=== PATIENT | female | born 1985 | race Caucasian/White ===

== ENCOUNTER 2017-04-04 16:59 | Emergency (ER) | payer MEDICAID ==
--- NOTE | 2017-04-04 17:58 | EDM.PDOC ---
ED HPI GENERAL MEDICAL PROBLEM - General Chief Complaint: ENT Problem Stated Complaint: PAIN RT SIDE JAW/FACE Time Seen by Provider: 04/04/17 17:40 Source of Information: Reports: Patient History Limitations: Reports: No Limitations - History of Present Illness INITIAL COMMENTS - FREE TEXT/NARRATIVE: History of present illness: [32-year-old female comes in complaining of right-sided jaw pain. Indicates that it is in the upper jaw radiating up into her anabaptism and then going down into her jaw and down into her neck.] Review of systems: As per history of present illness and below otherwise all systems reviewed and negative. Past medical history: As per history of present illness and as reviewed below otherwise noncontributory. Surgical history: As per history of present illness and as reviewed below otherwise noncontributory. Social history: No reported history of drug or alcohol abuse. Family history: As per history of present illness and as reviewed below otherwise noncontributory. Physical exam: HEENT: Atraumatic, normocephalic, pupils reactive, negative for conjunctival pallor or scleral icterus, mucous membranes moist, throat clear, neck supple, nontender, trachea midline. Lungs: Clear to auscultation, breath sounds equal bilaterally, chest nontender. Heart: S1S2, regular, negative for clicks, rubs, or JVD. Abdomen: Soft, nondistended, nontender. Negative for masses or hepatosplenomegaly. Negative for costovertebral tenderness. Pelvis: Stable nontender. Genitourinary: Deferred. Rectal: Deferred. Extremities: Atraumatic, negative for cords or calf pain. Neurovascular unremarkable. Neuro: Awake, alert, oriented. Cranial nerves II through XII unremarkable. Cerebellum unremarkable. Motor and sensory unremarkable throughout. Exam nonfocal. Dental: Patient with a filling of a few months in the right upper jaw in the region of 2 or 3 with a filling but swelling at the gumline consistent with an abscess patient noted increased tenderness on palpation to that zone. Diagnostics: [] Therapeutics: [] Impression: [#1 dental abscess] Plan: [Antibiotics pain medication follow-up with dentist] Definitive disposition and diagnosis as appropriate pending reevaluation and review of above. Right Jaw Pain Score (Numeric/FACES): 2 - Related Data Allergies Allergy/AdvReac Type Severity Reaction Status Date / Time latex Allergy Hives Verified 04/04/17 17:21 nifedipine Allergy Hives Verified 04/04/17 17:21 Sulfa (Sulfonamide Allergy Hives Verified 04/04/17 17:21 Antibiotics) triamcinolone Allergy Hives Verified 04/04/17 17:21 Home Meds: Home Meds . [No Known Home Meds] 06/04/16 [History] Past Medical History - Past Health History Medical/Surgical History: Denies Medical/Surgical History Hematologic History: Reports: None Immunologic History: Reports: None - Infectious Disease History Infectious Disease History: Reports: Chicken Pox - Past Surgical History Female Surgical History: Reports: LEEP Social & Family History - Family History Family Medical History: Noncontributory - Tobacco Use Smoking Status *Q: Never Smoker Second Hand Smoke Exposure: No - Caffeine Use Caffeine Use: Reports: None - Alcohol Use Days Per Week of Alcohol Use: 0 - Recreational Drug Use Recreational Drug Use: No Drug Use in Last 12 Months: No ED ROS ENT - Review of Systems Review Of Systems: See Below (The history of present illness) ED EXAM, ENT - Physical Exam Exam: See Below (See history of present illness) Course - Vital Signs Last Recorded V/S: Last Vital Signs Temp 37.1 C 04/04/17 17:22 Pulse 96 04/04/17 17:22 Resp 16 04/04/17 17:22 BP 128/76 04/04/17 17:22 Pulse Ox 99 04/04/17 17:22 Departure - Departure Time of Disposition: 17:56 Disposition: Home, Self-Care 01 Condition: Good Clinical Impression: Dental abscess - Discharge Information Referrals: Charlie Villafana MD [Primary Care Provider] - Additional Instructions: The following information is given to patients seen in the emergency department who are being discharged to home. This information is to outline your options for follow-up care. We provide all patients seen in our emergency department with a follow-up referral. The need for follow-up, as well as the timing and circumstances, are variable depending upon the specifics of your emergency department visit. If you don't have a primary care physician on staff, we will provide you with a referral. We always advise you to contact your personal physician following an emergency department visit to inform them of the circumstance of the visit and for follow-up with them and/or the need for any referrals to a consulting specialist. The emergency department will also refer you to a specialist when appropriate. This referral assures that you have the opportunity for follow-up care with a specialist. All of these measure are taken in an effort to provide you with optimal care, which includes your follow-up. Under all circumstances we always encourage you to contact your private physician who remains a resource for coordinating your care. When calling for follow-up care, please make the office aware that this follow-up is from your recent emergency room visit. If for any reason you are refused follow-up, please contact the Emergency Department at and asked to speak to the emergency department charge nurse. As discussed some fillings can crack, leak, or pull away from the tooth allowing bacteria to get behind them so this problem was not immediately visible until you start throwing an infection which is consistent with her findings today In light of lack of trauma and the swelling at the gumline this is consistent with a dental abscess and you're being treated accordingly Please take antibiotics and pain medicine as directed Follow-up with your dentist as soon as you can it is okay to complete antibiotics before the appointment Return to ED as needed as discussed
[2017-04-04 18:33] VITALS: BP 116/70
== END 2017-04-04 18:29 | disposition home or self-care (01) ==
LOC: MW.ED 16:59
DX: K04.7 Periapical abscess without sinus (principal); Z91.040 Latex allergy status; Z88.2 Allergy status to sulfonamides; Z88.8 Allergy status to other drugs, medicaments and biological substances
CPT/HCPCS: 99282

== ENCOUNTER 2018-01-16 20:54 | Emergency (ER) | payer SELFPAY ==
[2018-01-16] MEDS ORDERED: Ondansetron 4 MG/2 ML SDV IVPUSH ONE (21:55)
[2018-01-16] MEDS ORDERED: Ketorolac 30 MG/ML SDV IVPUSH ONE (21:55)
[2018-01-16] MEDS ORDERED: Morphine 2 MG/ML Syringe IVPUSH ONE (21:55)
[2018-01-16] MEDS ORDERED: Sodium Chloride 0.9% 2.5 ML Syringe FLUSH PRN (21:55)
[2018-01-16] MEDS ORDERED: Sodium Chloride 0.9% 10 ML Syringe FLUSH PRN (21:55)
[2018-01-16] MEDS ORDERED: Sodium Chloride 0.9% 1,000 ML IV ONE (21:55)
--- NOTE | 2018-01-16 21:58 | EDM.PDOC ---
ED HPI GENERAL MEDICAL PROBLEM - General Chief Complaint: Abdominal Pain Stated Complaint: RT SIDE ABDOMINAL PAIN Time Seen by Provider: 01/16/18 21:50 - History of Present Illness INITIAL COMMENTS - FREE TEXT/NARRATIVE: HISTORY AND PHYSICAL: History of present illness: The patient is a 32-year-old female with no GI or history and no abdominal surgical history who presents with onset of right upper and right lower quadrant pain that started about 12 noon today, 10 hours ago. The patient says she has had nausea with this but no vomiting and no diarrhea and she had a normal bowel movement yesterday. The patient did not state that she had any history of food intolerance and she has had no fevers chills upper respiratory symptoms flank pain or urinary complaints. She denies and says that she has not due for her period because it comes every 5-6 weeks. Her had a vasectomy. She describes the pain as dull deep and aching and it does not radiate. She says it's more in the right lower quadrant currently. Ibuprofen earlier but nothing since that time for pain. The patient says that since breakfast she has not eaten any solids and she's only taken a small amount of oral fluids due to the nausea and pain. Review of systems: As per history of present illness and below otherwise all systems reviewed and negative. Past medical history: As per history of present illness and as reviewed below otherwise noncontributory. Surgical history: As per history of present illness and as reviewed below otherwise noncontributory. Social history: No reported history of drug or alcohol abuse. Family history: As per history of present illness and as reviewed below otherwise noncontributory. Physical exam: General: Well-developed well-nourished female who moves easily in the ED without distress. Vital signs were noted by me HEENT: Atraumatic, normocephalic, negative for conjunctival pallor or scleral icterus, mucous membranes tacky, throat clear, neck supple, nontender, trachea midline. Lungs: Clear to auscultation, breath sounds equal bilaterally, chest nontender. Heart: S1S2, regular, negative for clicks, rubs, or JVD. Abdomen: Soft, nondistended, mildly tender in the right upper quadrant and right lower quadrant without rebound or guarding and bowel sounds are hypoactive. Negative for masses or hepatosplenomegaly. Negative for costovertebral tenderness. Pelvis: Stable nontender. Genitourinary: Deferred. Rectal: Deferred. Extremities: Atraumatic, negative for cords or calf pain. Neurovascular unremarkable. Neuro: Awake, alert, oriented. Cranial nerves II through XII unremarkable. Cerebellum unremarkable. Motor and sensory unremarkable throughout. Exam nonfocal. Diagnostics: CBC CMP amylase lipase UA CT scan of the abdomen and pelvis Therapeutics: IV fluids Zofran Toradol morphine He is aware of all testing results and need for follow-up as well as avoidance of fatty foods and I will give her Zofran and tramadol for home. Impression: Right abdominal pain etiology unclear Definitive disposition and diagnosis as appropriate pending reevaluation and review of above. abdomen Pain Score (Numeric/FACES): 7 - Related Data Allergies Allergy/AdvReac Type Severity Reaction Status Date / Time latex Allergy Hives Verified 01/16/18 21:20 nifedipine Allergy Hives Verified 01/16/18 21:20 Sulfa (Sulfonamide Allergy Hives Verified 01/16/18 21:20 Antibiotics) triamcinolone Allergy Hives Verified 01/16/18 21:20 plaster Allergy Hives Uncoded 01/16/18 21:21 Home Meds: Home Meds . [No Known Home Meds] 06/04/16 [History] Past Medical History - Past Health History Medical/Surgical History: Denies Medical/Surgical History Hematologic History: Reports: None Immunologic History: Reports: None - Infectious Disease History Infectious Disease History: Reports: Chicken Pox - Past Surgical History Female Surgical History: Reports: LEEP Social & Family History - Family History Family Medical History: Noncontributory - Tobacco Use Smoking Status *Q: Never Smoker - Caffeine Use Caffeine Use: Reports: None - Recreational Drug Use Recreational Drug Use: No ED ROS GENERAL - Review of Systems Review Of Systems: ROS reveals no pertinent complaints other than HPI. ED EXAM, GENERAL - Physical Exam Exam: See Below (See dictation) Course - Vital Signs Last Recorded V/S: Last Vital Signs Temp 37.2 C 01/16/18 20:54 Pulse 88 01/16/18 23:11 Resp 16 01/16/18 23:11 BP 126/70 01/16/18 23:11 Pulse Ox 96 01/16/18 23:11 - Orders/Labs/Meds Orders: Active Orders 24 hr Category Date Time Status Abdomen Pelvis w Cont [CT] Stat Exams 01/16/18 21:55 Taken UA W/MICROSCOPIC [URIN] Stat Lab 01/16/18 21:50 Ordered Sodium Chloride 0.9% [Saline Flush] Med 01/16/18 21:55 Active 10 ml FLUSH ASDIRECTED PRN Sodium Chloride 0.9% [Saline Flush] Med 01/16/18 21:55 Active 2.5 ml FLUSH ASDIRECTED PRN Saline Lock Insert [OM.PC] Stat Oth 01/16/18 21:55 Ordered Medication Orders Sodium Chloride (Saline Flush) 10 ml FLUSH ASDIRECTED PRN PRN Reason: Keep Vein Open Sodium Chloride (Saline Flush) 2.5 ml FLUSH ASDIRECTED PRN PRN Reason: Keep Vein Open Labs: Laboratory Tests 01/16/18 01/16/18 01/16/18 Range/Units 21:50 21:50 21:50 WBC 10.30 (4.0-11.0) K/uL RBC 4.69 (4.30-5.90) M/uL Hgb 15.0 (12.0-16.0) g/dL Hct 43.4 (36.0-46.0) % MCV 92.5 (80.0-98.0) fL MCH 32.0 (27.0-32.0) pg MCHC 34.6 (31.0-37.0) g/dL RDW Std Deviation 41.8 (28.0-62.0) fl RDW Coeff of Edvin 12 (11.0-15.0) % Plt Count 273 (150-400) K/uL MPV 9.80 (7.40-12.00) fL Neut % (Auto) 58.1 (48.0-80.0) % Lymph % (Auto) 28.9 (16.0-40.0) % [place] % (Auto) 9.6 (0.0-15.0) % Eos % (Auto) 2.9 (0.0-7.0) % Baso % (Auto) 0.5 (0.0-1.5) % Neut # (Auto) 6.0 H (1.4-5.7) K/uL Lymph # (Auto) 3.0 H (0.6-2.4) K/uL [place] # (Auto) 1.0 H (0.0-0.8) K/uL Eos # (Auto) 0.3 (0.0-0.7) K/uL Baso # (Auto) 0.1 (0.0-0.1) K/uL Nucleated RBC % 0.0 /100WBC Nucleated RBCs # 0 K/uL Sodium 141 (136-145) mmol/L Potassium 3.6 (3.5-5.1) mmol/L Chloride 104 (98-107) mmol/L Carbon Dioxide 29.3 (21.0-32.0) mmol/L BUN 13 (7.0-18.0) mg/dL Creatinine 1.0 (0.6-1.0) mg/dL Est Cr Clr Drug Dosing 78.54 mL/min Estimated GFR (MDRD) > 60.0 ml/min Glucose 105 (74-106) mg/dL Calcium 9.4 (8.5-10.1) mg/dL Total Bilirubin 0.4 (0.2-1.0) mg/dL AST 19 (15-37) IU/L ALT 25 (14-63) IU/L Alkaline Phosphatase 51 (46-116) U/L Total Protein 8.1 (6.4-8.2) g/dL Albumin 4.0 (3.4-5.0) g/dL Globulin 4.1 H (2.0-3.5) g/dL Albumin/Globulin Ratio 1.0 L (1.3-2.8) Amylase 62 (25-115) U/L Lipase 116 (73-393) U/L Urine Color YELLOW Urine Appearance CLEAR Urine pH 6.0 (5.0-8.0) Ur Specific [place] 1.020 (1.001-1.035) Urine Protein NEGATIVE (NEGATIVE) mg/dL Urine Glucose (UA) NEGATIVE (NEGATIVE) mg/dL Urine Ketones NEGATIVE (NEGATIVE) mg/dL Urine Occult Blood SMALL H (NEGATIVE) Urine Nitrite NEGATIVE (NEGATIVE) Urine Bilirubin NEGATIVE (NEGATIVE) Urine Urobilinogen 0.2 (<2.0) EU/dL Ur Leukocyte Esterase NEGATIVE (NEGATIVE) Urine RBC 0-2 (0-2/HPF) Urine WBC 0-1 (0-5/HPF) Ur Epithelial Cells FEW (NONE-FEW) Urine Bacteria FEW (NEGATIVE) Meds: Medications Generic Name Dose Route Start Last Admin Trade Name Wanda PRN Reason Stop Dose Admin Sodium Chloride 10 ml 01/16/18 21:55 Saline Flush FLUSH ASDIRECTED PRN Keep Vein Open Sodium Chloride 2.5 ml 01/16/18 21:55 Saline Flush FLUSH ASDIRECTED PRN Keep Vein Open Discontinued Medications Generic Name Dose Route Start Last Admin Trade Name Wanda PRN Reason Stop Dose Admin Sodium Chloride 1,000 mls @ 999 mls/hr 01/16/18 21:55 01/16/18 22:10 Normal Saline IV 01/16/18 22:55 999 mls/hr STAT ONE Administration Iopamidol 100 ml 01/16/18 23:15 01/16/18 23:15 Isovue Multipack-370 (76%) IVPUSH 01/16/18 23:16 100 ml ONETIME STA Administration Ketorolac Tromethamine 30 mg 01/16/18 21:55 01/16/18 22:10 Toradol IVPUSH 01/16/18 21:56 30 mg ONETIME ONE Administration Morphine Sulfate 2 mg 01/16/18 21:55 01/16/18 22:10 Morphine IVPUSH 01/16/18 21:56 2 mg ONETIME ONE Administration Ondansetron HCl 4 mg 01/16/18 21:55 01/16/18 22:10 Zofran IVPUSH 01/16/18 21:56 4 mg ONETIME ONE Administration Departure - Departure Time of Disposition: 23:54 Disposition: Home, Self-Care 01 Condition: Good Clinical Impression: Abdominal pain Qualifiers: Abdominal location: right lower quadrant Qualified Code(s): R10.31 - Right lower quadrant pain - Discharge Information Referrals: Charlie Villafana MD [Primary Care Provider] - Forms: ED Department Discharge Additional Instructions: The following information is given to patients seen in the emergency department who are being discharged to home. This information is to outline your options for follow-up care. We provide all patients seen in our emergency department with a follow-up referral. The need for follow-up, as well as the timing and circumstances, are variable depending upon the specifics of your emergency department visit. If you don't have a primary care physician on staff, we will provide you with a referral. We always advise you to contact your personal physician following an emergency department visit to inform them of the circumstance of the visit and for follow-up with them and/or the need for any referrals to a consulting specialist. The emergency department will also refer you to a specialist when appropriate. This referral assures that you have the opportunity for followup care with a specialist. All of these measure are taken in an effort to provide you with optimal care, which includes your followup. Under all circumstances we always encourage you to contact your private physician who remains a resource for coordinating your care. When calling for followup care, please make the office aware that this follow-up is from your recent emergency room visit. If for any reason you are refused follow-up, please contact the [facility] emergency department at and ask to speak to the emergency department charge nurse. [facility] Primary care- Internal Medicine and Family [address] [id number] Push hydration and try to avoid foods with fat or oil. Use medications as prescribed to be Insty Meds, Zofran and tramadol, as needed and please call and schedule a follow-up appointment. Return to ER as needed and as discussed - My Orders Last 24 Hours: My Active Orders 01/16/18 21:50 UA W/MICROSCOPIC [URIN] Stat 01/16/18 21:55 Abdomen Pelvis w Cont [CT] Stat Sodium Chloride 0.9% [Saline Flush] 10 ml FLUSH ASDIRECTED PRN Sodium Chloride 0.9% [Saline Flush] 2.5 ml FLUSH ASDIRECTED PRN Saline Lock Insert [OM.PC] Stat - Assessment/Plan Last 24 Hours: My Active Orders 01/16/18 21:50 UA W/MICROSCOPIC [URIN] Stat 01/16/18 21:55 Abdomen Pelvis w Cont [CT] Stat Sodium Chloride 0.9% [Saline Flush] 10 ml FLUSH ASDIRECTED PRN Sodium Chloride 0.9% [Saline Flush] 2.5 ml FLUSH ASDIRECTED PRN Saline Lock Insert [OM.PC] Stat
[2018-01-16 22:18] LABS: CHLORIDE,CL 104 mmol/L (98-107); SODIUM,NA 141 mmol/L (136-145)
[2018-01-16 23:11] VITALS: BP 126/70
[2018-01-16] MEDS ORDERED: Iopamidol 755 MG/ML 500 ML Multipack Bottle IVPUSH STA (23:15)
--- NOTE | 2018-01-17 17:04 | CT ---
EXAM DATE: 01/16/18 PATIENT'S AGE: 32 Patient: WENDY WORKMAN Facility: [place], [place] Site . Site : 1985 Study: CT Abdomen/Pelvis [id number]/24/2018 11:17:11 PM Ordering Physician: Gerard Gamboa Final Report: INDICATION: Right sided abdominal pain TECHNIQUE: CT Abdomen and pelvis with i.v. contrast. Coronal and sagittal reformats were obtained. CONTRAST: 100 mL Isovue 370 COMPARISON: 06/04/2016 FINDINGS: Lower chest: Unremarkable. Liver: Unremarkable. Spleen: Unremarkable. Pancreas: Unremarkable. Gallbladder: Unremarkable. Kidney: Unremarkable. No kidney or ureteral stones or obstruction seen. Adrenal: Unremarkable. Bowel: Unremarkable. The appendix is normal in appearance and size. Vascular: Unremarkable. Lymph: Unremarkable. Peritoneum: Unremarkable. No pneumoperitoneum is seen. Small amount of ascites is present and is likely physiologic in origin. Pelvis: Moderate bladder distention is noted. Soft tissue: Unremarkable. Bone: Bilateral chronic pars defects of L5 noted with mild anterolisthesis of L5 -S1 noted without interval change. IMPRESSION: 1. Unremarkable with no CT correlate for the patient`s symptoms seen. Dictated by Augie Kauffman MD @ 01/16/2018 11:33:30 PM Please note that all CT scans at this facility use dose modulation, iterative reconstruction, and/or weight-based dosing when appropriate to reduce radiation dose to as low as reasonably achievable. Dictated by: Augie Kauffman MD @ 01/16/2018 23:34:34 (Electronic Signature) Report Signed by Proxy. [facility]
== END 2018-01-17 00:15 | disposition home or self-care (01) ==
LOC: MW.ED 20:54
DX: R10.31 Right lower quadrant pain (principal); Z91.040 Latex allergy status; Z88.2 Allergy status to sulfonamides; Z91.09 Other allergy status, other than to drugs and biological substances
CPT/HCPCS: 74177; 80053; 81001; 82150; 83690; 85025; 96361; 96374; 96375; 99284; J1885; J2270; J2405; J7040; Q9967

== ENCOUNTER 2021-06-23 10:30 | Observation (INO) | payer SELFPAY ==
--- NOTE | 2021-06-23 10:51 | EDM.PDOC ---
ED HPI GENERAL MEDICAL PROBLEM - General Chief Complaint: Syncope Stated Complaint: PASSING OUT Time Seen by Provider: 06/23/21 10:44 Source of Information: Reports: Patient History Limitations: Reports: No Limitations - History of Present Illness INITIAL COMMENTS - FREE TEXT/NARRATIVE: HISTORY AND PHYSICAL: History of present illness: The patient is a 36 year old female who presents from the clinic with complaints of syncopal episodes and a K+ 2.9. The patient states she has been having syncopal episodes for three days. She associated it with her menses cycle as this does happen and she is currently having a heavy cycle. The patient states up until three days ago she has otherwise been healthy. Patient denies any fever, chills, headache, change in vision. Denies any chest pain, back pain, shortness of breath or cough. Denies any abdominal pain, vomiting, diarrhea, constipation or dysuria. Has not noted any blood in urine or stool. Patient has been eating and drinking appropriately. Review of systems: As per history of present illness and below otherwise all systems reviewed and negative. Past medical history: As per history of present illness and as reviewed below otherwise noncontributory. Surgical history: As per history of present illness and as reviewed below otherwise noncontributory. Social history: See social history for further information Family history: As per history of present illness and as reviewed below otherwise noncontributory. Physical exam: General: Well developed and well nourished. Alert and orientated x 3. Nontoxic in appearance and in no acute distress. Vital signs are stable and have been reviewed by me. Nursing notes were reviewed. HEENT: Atraumatic, normocephalic, pupils equal and reactive bilaterally, negative for conjunctival pallor or scleral icterus, mucous membranes moist, TMs normal bilaterally, throat clear, neck supple, nontender, trachea midline. No drooling or trismus noted. No meningeal signs. No hot potato voice noted. Lungs: Clear to auscultation bilaterally. No wheezes, rales, or rhonchi. Chest nontender. Normal work of breathing, no accessory muscles used. Heart: S1S2, regular rate and rhythm without overt murmur, gallops, or rubs. No JVD. No peripheral edema Abdomen: Soft, nondistended, nontender. Normoactive bowel sounds. Negative for masses or costovertebral tenderness. Skin: Intact, warm, dry. Red areas noted on face and nose. Hematologic: No petechiae or purpra. Mucosa appropriate color and normal nail bed color and refill. Extremities: Atraumatic, moves all extremities per self without difficulty or deficits. Neurovascular unremarkable. Neuro: Awake, alert, oriented. Cranial nerves II through XII unremarkable. Cerebellum unremarkable. Motor and sensory unremarkable throughout. Exam nonfocal. Psychiatric: Mood and affect are appropriate. Normal thought process. Answering questions appropriately. Notes: *This patient was seen and evaluated during the 2019 SARS-CoV-2 novel coronavirus pandemic period. Community viral transmission is ongoing at time of this encounter and the emergency department is operating under pandemic response procedures. As stated above, the patient is a 36 year old female that has had several syncopal episodes over the last three days. The patient has been nauseated but has not been vomiting or having diarrhea. Her exam is benign. I will repeat her labs and EKG. I will order fluids and zofran. I have order a head CT. The patient refused her head CT. The patient's K+ is 3.2. Due to her nausea, I have ordered a K-rider of 20MeQ. The patient is agreeable with this plan. At 12:50 the patient had a syncopal episode or possible seizure activity according to the friend in the room. The patient does not appear postitical but does complain of left arm and hand pain after the episode. The patient has agreed to the head CT. I have added a urine drug screen, acetaminophen and salicylate level, along with a COVID swab. I have consulted Dr. Manjarrez on the case. Head CT: IMPRESSION: Unremarkable noncontrast head CT. The patient's COVID-19 was positive. I spoke with Dr. Lynn regarding admission status. Dr. Lynn will accept the patient as an observation with telemetry. The patient will get orthostatic vitals. I will order an chest x-ray due to the patient being COVID-19+. The patient is aware of the diagnosis and of the a dmission. She is agreeable with the plan. The patient is orthostatic with a sitting blood pressure of 107/66 & pulse 104, standing b/p 102/65 & pulse 121. She is not dizzy after having to stand up. Chest x-ray Findings/Impression: Cardiovascular and mediastinum: Heart size and vasculature are normal in caliber and appearance. Lungs and pleural space: Relatively small focal infiltrate in the left lower lobe consistent with pneumonia/pneumonitis. Remainder of the lungs and pleural spaces are clear. No pneumothorax. Bones and soft tissues: No acute findings. Urine is negative for an infection. The urine drug screen is negative. Diagnostics:CBC, CMP, MG, EKG, UA, CXR, head CT, urine drug screen, acetaminophen and salicylate, COVID, Therapeutics:IV fluids, K-rider, Impression: Syncope, COVID-19 Definitive disposition and diagnosis as appropriate pending reevaluation and review of above. headache Pain Score (Numeric/FACES): 6 - Related Data Allergies Allergy/AdvReac Type Severity Reaction Status Date / Time latex Allergy Hives Verified 06/23/21 10:49 nifedipine Allergy Hives Verified 06/23/21 10:49 Sulfa (Sulfonamide Allergy Hives Verified 06/23/21 10:49 Antibiotics) plaster Allergy Hives Uncoded 06/23/21 10:49 Home Meds: Home Meds . [No Known Home Meds] 06/04/16 [History] Past Medical History - Past Health History Medical/Surgical History: Denies Medical/Surgical History Hematologic History: Reports: None Immunologic History: Reports: None - Infectious Disease History Infectious Disease History: Reports: Chicken Pox - Past Surgical History Female Surgical History: Reports: LEEP Social & Family History - Family History Family Medical History: No Pertinent Family History - Caffeine Use Caffeine Use: Reports: None ED ROS GENERAL - Review of Systems Review Of Systems: Comprehensive ROS is negative, except as noted in HPI. - Physical Exam Exam: See Below (See dictation) Course - Vital Signs Last Recorded V/S: Last Vital Signs Temp 99.3 F 06/23/21 17:06 Pulse 109 H 06/23/21 17:06 Resp 20 06/23/21 17:06 BP 113/80 06/23/21 17:06 Pulse Ox 96 06/23/21 17:06 - Orders/Labs/Meds Orders: Medication Orders Enoxaparin Sodium (Enoxaparin 40 Mg/0.4 Ml Syringe) 40 mg SUBCUT Q24H POOL Levofloxacin/Dextrose 750 mg/ (Premix) 150 mls @ 100 mls/hr IV Q24H POOL Last Admin: 06/23/21 16:39 Dose: 100 mls/hr Documented by: CLARISSA Ondansetron HCl (Ondansetron 4 Mg/2 Ml Sdv) 4 mg IVPUSH Q6H PRN PRN Reason: Nausea/Vomiting Pantoprazole Sodium (Pantoprazole 40 Mg/10 Ml Syringe) 40 mg IVPUSH DAILY POOL Labs: Laboratory Tests 06/23/21 06/23/21 06/23/21 Range/Units 11:11 11:11 11:11 WBC 4.27 (4.0-11.0) K/uL RBC 4.77 (4.30-5.90) M/uL Hgb 15.0 (12.0-16.0) g/dL Hct 44.0 (36.0-46.0) % MCV 92.2 (80.0-98.0) fL MCH 31.4 (27.0-32.0) pg MCHC 34.1 (31.0-37.0) g/dL RDW Std Deviation 42.1 (28.0-62.0) fl RDW Coeff of Edvin 13 (11.0-15.0) % Plt Count 148 L (150-400) K/uL MPV 10.50 (7.40-12.00) fL Neut % (Auto) 66.5 (48.0-80.0) % Lymph % (Auto) 22.5 (16.0-40.0) % [place] % (Auto) 10.5 (0.0-15.0) % Eos % (Auto) 0.0 (0.0-7.0) % Baso % (Auto) 0.5 (0.0-1.5) % Neut # (Auto) 2.8 (1.4-5.7) K/uL Lymph # (Auto) 1.0 (0.6-2.4) K/uL [place] # (Auto) 0.5 (0.0-0.8) K/uL Eos # (Auto) 0.0 (0.0-0.7) K/uL Baso # (Auto) 0.0 (0.0-0.1) K/uL Nucleated RBC % 0.0 /100WBC Nucleated RBCs # 0 K/uL Sodium 140 (136-145) mmol/L Potassium 3.2 L (3.5-5.1) mmol/L Chloride 102 (98-107) mmol/L Carbon Dioxide 30.1 (21.0-32.0) mmol/L BUN 12 (7.0-18.0) mg/dL Creatinine 0.7 (0.6-1.0) mg/dL Est Cr Clr Drug Dosing 104.01 mL/min Estimated GFR (MDRD) > 60.0 ml/min Glucose 118 H (74-106) mg/dL Calcium 8.4 L (8.5-10.1) mg/dL Magnesium 2.2 (1.8-2.4) mg/dL Total Bilirubin 0.4 (0.2-1.0) mg/dL AST 44 H (15-37) IU/L ALT 39 (14-63) IU/L Alkaline Phosphatase 55 (46-116) U/L Troponin I < 0.050 (0.000-0.056) ng/mL Total Protein 7.8 (6.4-8.2) g/dL Albumin 3.4 (3.4-5.0) g/dL Globulin 4.4 H (2.6-4.0) g/dL Albumin/Globulin Ratio 0.8 L (0.9-1.6) Salicylates (0-20) mg/dL Acetaminophen ug/mL SARS-CoV-2 RNA (SULEMAN) (NEGATIVE) 06/23/21 06/23/21 Range/Units 11:11 13:10 WBC (4.0-11.0) K/uL RBC (4.30-5.90) M/uL Hgb (12.0-16.0) g/dL Hct (36.0-46.0) % MCV (80.0-98.0) fL MCH (27.0-32.0) pg MCHC (31.0-37.0) g/dL RDW Std Deviation (28.0-62.0) fl RDW Coeff of Edvin (11.0-15.0) % Plt Count (150-400) K/uL MPV (7.40-12.00) fL Neut % (Auto) (48.0-80.0) % Lymph % (Auto) (16.0-40.0) % [place] % (Auto) (0.0-15.0) % Eos % (Auto) (0.0-7.0) % Baso % (Auto) (0.0-1.5) % Neut # (Auto) (1.4-5.7) K/uL Lymph # (Auto) (0.6-2.4) K/uL [place] # (Auto) (0.0-0.8) K/uL Eos # (Auto) (0.0-0.7) K/uL Baso # (Auto) (0.0-0.1) K/uL Nucleated RBC % /100WBC Nucleated RBCs # K/uL Sodium (136-145) mmol/L Potassium (3.5-5.1) mmol/L Chloride (98-107) mmol/L Carbon Dioxide (21.0-32.0) mmol/L BUN (7.0-18.0) mg/dL Creatinine (0.6-1.0) mg/dL Est Cr Clr Drug Dosing mL/min Estimated GFR (MDRD) ml/min Glucose (74-106) mg/dL Calcium (8.5-10.1) mg/dL Magnesium (1.8-2.4) mg/dL Total Bilirubin (0.2-1.0) mg/dL AST (15-37) IU/L ALT (14-63) IU/L Alkaline Phosphatase (46-116) U/L Troponin I (0.000-0.056) ng/mL Total Protein (6.4-8.2) g/dL Albumin (3.4-5.0) g/dL Globulin (2.6-4.0) g/dL Albumin/Globulin Ratio (0.9-1.6) Salicylates 1.1 (0-20) mg/dL Acetaminophen <2.0 ug/mL SARS-CoV-2 RNA (SULEMAN) POSITIVE H (NEGATIVE) Meds: Medications Generic Name Dose Route Start Last Admin Trade Name Freq PRN Reason Stop Dose Admin Enoxaparin Sodium 40 mg 06/23/21 17:00 Enoxaparin 40 Mg/0.4 Ml Syringe SUBCUT Q24H POOL Levofloxacin/Dextrose 750 mg/ 150 mls @ 100 mls/hr 06/23/21 16:15 06/23/21 16:39 Premix IV 100 mls/hr Q24H POOL Administration Ondansetron HCl 4 mg 06/23/21 16:13 Ondansetron 4 Mg/2 Ml Sdv IVPUSH Q6H PRN Nausea/Vomiting Pantoprazole Sodium 40 mg 06/23/21 17:00 Pantoprazole 40 Mg/10 Ml Syringe IVPUSH DAILY POOL Discontinued Medications Generic Name Dose Route Start Last Admin Trade Name Freq PRN Reason Stop Dose Admin Sodium Chloride 1,000 mls @ 999 mls/hr 06/23/21 11:09 06/23/21 12:05 Normal Saline IV 06/23/21 12:09 999 mls/hr .BOLUS ONE Administration Potassium Chloride 20 meq/ 50 mls @ 25 mls/hr 06/23/21 11:23 06/23/21 12:14 Premix IV 06/23/21 13:22 25 mls/hr ONETIME ONE Administration Ondansetron HCl 4 mg 06/23/21 11:09 06/23/21 12:06 Ondansetron 4 Mg/2 Ml Sdv IVPUSH 06/23/21 11:10 4 mg ONETIME ONE Administration Potassium Chloride 40 meq 06/23/21 16:11 06/23/21 16:38 Potassium Chloride 20 Meq Tab.Er PO 06/23/21 16:12 40 meq ONETIME ONE Administration Departure - Departure Time of Disposition: 14:24 Disposition: Refer to Observation Condition: Good Clinical Impression: COVID-19 Syncope Qualifiers: Syncope type: unspecified Qualified Code(s): R55 - Syncope and collapse - Discharge Information *PRESCRIPTION DRUG MONITORING PROGRAM REVIEWED*: Not Applicable *COPY OF PRESCRIPTION DRUG MONITORING REPORT IN PATIENT TATI: Not Applicable Sepsis Event Note (ED) - Evaluation Sepsis Screening Result: No Definite Risk - Focused Exam Vital Signs: Vital Signs Temp Pulse Resp BP Pulse Ox 06/23/21 14:01 99.9 F 101 H 17 92/68 96 06/23/21 13:04 98 F 89 14 92/61 96 06/23/21 12:09 92 18 95/65 92 L 06/23/21 10:46 96.5 F L 94 18 113/70 98
--- NOTE | 2021-06-23 10:51 | PCM.EKG ---
#1 Interpretation EKG Date: 06/23/21 Time: 10:47 Rhythm: NSR Rate (Beats/Min): 96 ST-T: Normal
[2021-06-23] MEDS ORDERED: Ondansetron 4 MG/2 ML SDV IVPUSH ONE (11:09)
[2021-06-23] MEDS ORDERED: Sodium Chloride 0.9% 1,000 ML IV ONE (11:09)
[2021-06-23] MEDS ORDERED: Potassium Chloride Riders 20 MEQ in Premix Bag 1 BAG IV ONE (11:23)
[2021-06-23 11:50] LABS: BLOOD UREA NITROGEN,BUN 12 mg/dL (7.0-18.0); CARBON DIOXIDE,CO2 30.1 mmol/L (21.0-32.0); CHLORIDE,CL 102 mmol/L (98-107); GLUCOSE RANDOM 118 mg/dL (74-106); POTASSIUM,K 3.2 mmol/L (3.5-5.1); SODIUM,NA 140 mmol/L (136-145)
--- NOTE | 2021-06-23 13:51 | CT ---
INDICATION: Syncope versus seizure TECHNIQUE: CT head without contrast. COMPARISON: None FINDINGS: CSF spaces: Within normal limits for age. Brain parenchyma: The chavez-white differentiation is normal. No sign of mass, hemorrhage, or midline shift. Skull base and calvarium: The visualized paranasal sinuses and mastoid air cells demonstrate no acute or significant findings. The visualized orbits are grossly unremarkable. No skull fractures. IMPRESSION: Unremarkable noncontrast head CT. Please note that all CT scans at this facility use dose modulation, iterative reconstruction, and/or weight-based dosing when appropriate to reduce radiation dose to as low as reasonably achievable. Dictated by Charlie Olsen MD @ 06/23/2021 1:49:55 PM (Electronically Signed)
[2021-06-23 13:54] LABS: ACETAMINOPHEN <2.0 ug/mL
--- NOTE | 2021-06-23 14:50 | CR ---
Indication: COVID-19 positive result. Technique: Chest 1 view. Comparison: None. Findings/Impression: Cardiovascular and mediastinum: Heart size and vasculature are normal in caliber and appearance. Lungs and pleural space: Relatively small focal infiltrate in the left lower lobe consistent with pneumonia/pneumonitis. Remainder of the lungs and pleural spaces are clear. No pneumothorax. Bones and soft tissues: No acute findings. Dictated by Mekhi Snyder MD @ 06/23/2021 2:48:14 PM (Electronically Signed)
[2021-06-23] MEDS ORDERED: Potassium Chloride 20 MEQ Tab.ER PO ONE (16:11)
[2021-06-23] MEDS ORDERED: Ondansetron 4 MG/2 ML SDV IVPUSH PRN (16:13)
[2021-06-23] MEDS ORDERED: Levofloxacin/Dextrose 5%-Water 750 MG in Premix Bag 1 BAG IV SCH (16:15)
--- NOTE | 2021-06-23 16:48 | PCM.HP.2 ---
H&P History of Present Illness - General Date of Service: 06/23/21 Admit Problem/Dx: Admission Diagnosis/Problem Admission Diagnosis/Problem Syncope - History of Present Illness Initial Comments - Free Text/Narative: The patient is a 36-year-old female, on day 1 of service, who has no significant past medical history, who was admitted to the medical floor due to syncope and was also found to have pneumonia, a UTI, and hypokalemia. Upon interview with the patient today she admits that this past night she started to have syncopal episodes characterized by tinnitus in both ears, feeling flushed/hot, and sweating before she passed out. When she woke up she was slightly confused but knew where she was. The same type of episode occurred Wednesday night as well and this morning. During all 3 episodes the patient did not lose bladder or bowel control, was witnessed and did not have any shakes or seizures, did not have any back, musculoskeletal, or other pain, but did feel nauseous without vomiting. The patient admits that she had an episode such as this before when she was but cannot recall if a full work-up was completed, and admits episodes of near syncope have happened during her menstrual cycle. She has no family history of seizures and has never been diagnosed with seizures, or any heart conditions. Upon further interview she denies chest pain, palpitations, abdominal pain, neurological insults, tingling, numbness, slurred speech, or change in voice/vision. She was recently diagnosed with COVID-19 infection even though she has no symptoms and does not require oxygen. When the prospect of Regeneron monoclonal antibodies was introduced to her, she declined treatment. She has allergies to latex, nifedipine, sulfa drugs, and plaster. She denies smoking, alcohol consumption, or any recreational drug use. On CBC, her white blood cell count is 4.27, hemoglobin is 15, hematocrit is 44, and platelet count is 148. On CMP, her sodium is 140, potassium is 3.2, chloride is 102, carbon dioxide is 30.1, BUN is 12, and creatinine is 0.7. On EKG, she has a normal sinus rhythm. Her head CT is unremarkable. On chest x-ray, small focal infiltrates are seen in the left lower lobe representing pneumonia/pneumonitis. Urine analysis reveals trace amounts of leukocyte esterase. In the emergency department, the patient was given normal saline 1000 mL as a bolus, she was also given potassium chloride 20 mEq in order to increase her lowered potassium, and was given Zofran 4 mg per IV route once. She also had the tests listed above completed in the ED. headache Pain Score (Numeric/FACES): 6 - Related Data Allergies/Adverse Reactions: Allergies Allergy/AdvReac Type Severity Reaction Status Date / Time latex Allergy Hives Verified 06/23/21 10:49 nifedipine Allergy Hives Verified 06/23/21 10:49 Sulfa (Sulfonamide Allergy Hives Verified 06/23/21 10:49 Antibiotics) plaster Allergy Hives Uncoded 06/23/21 10:49 Home Medications: Home Meds . [No Known Home Meds] 06/04/16 [History] Past Medical History - Past Health History Medical/Surgical History: Denies Medical/Surgical History Hematologic History: Reports: None Immunologic History: Reports: None Dermatologic History: Reports: Eczema - Infectious Disease History Infectious Disease History: Reports: Chicken Pox - Past Surgical History Female Surgical History: Reports: LEEP Social & Family History - Family History Family Medical History: No Pertinent Family History - Caffeine Use Caffeine Use: Reports: None - Recreational Drug Use Recreational Drug Use: No H&P Review of Systems - Review of Systems: Review Of Systems: See Below General: Reports: Fatigue. Denies: Fever, Chills, Weakness HEENT: Reports: Headaches. Denies: Sore Throat, Vertigo Pulmonary: Denies: Shortness of Breath, Cough Cardiovascular: Denies: Chest Pain, Palpitations Gastrointestinal: Reports: Decreased Appetite, Nausea. Denies: Abdominal Pain, Vomiting Genitourinary: Denies: Dysuria, Frequency, Burning Neurological: Reports: Syncope. Denies: Confusion, Dizziness, Numbness, Seizure, Trouble Speaking, Difficulty Walking Exam - Exam Exam: See Below - Vital Signs Vital Signs: Last Vital Signs Temp 99.4 F 06/23/21 15:52 Pulse 109 H 06/23/21 15:52 Resp 16 06/23/21 15:52 BP 119/70 06/23/21 15:52 Pulse Ox 95 06/23/21 15:52 Orthostatic Blood Pressure [ 102/65 Standing] Orthostatic Blood Pressure [ 107/66 Sitting] Weight: 198 lb - Exam General: Alert, Oriented, Cooperative HEENT: EOMI, Other (Dry mucous membranes) Neck: Trachea Midline Lungs: Clear to Auscultation, Normal Respiratory Effort Cardiovascular: Regular Rate, Regular Rhythm GI/Abdominal Exam: Normal Bowel Sounds, Soft, Non-Tender Neurological: Cranial Nerves Intact, Normal Speech, Sensation Intact - Patient Data Lab Results Last 24 hrs: Laboratory Results - last 24 hr 06/23/21 06/23/21 06/23/21 Range/Units 11:11 11:11 11:11 WBC 4.27 (4.0-11.0) K/uL RBC 4.77 (4.30-5.90) M/uL Hgb 15.0 (12.0-16.0) g/dL Hct 44.0 (36.0-46.0) % MCV 92.2 (80.0-98.0) fL MCH 31.4 (27.0-32.0) pg MCHC 34.1 (31.0-37.0) g/dL RDW Std Deviation 42.1 (28.0-62.0) fl RDW Coeff of Edvin 13 (11.0-15.0) % Plt Count 148 L (150-400) K/uL MPV 10.50 (7.40-12.00) fL Neut % (Auto) 66.5 (48.0-80.0) % Lymph % (Auto) 22.5 (16.0-40.0) % Charles % (Auto) 10.5 (0.0-15.0) % Eos % (Auto) 0.0 (0.0-7.0) % Baso % (Auto) 0.5 (0.0-1.5) % Neut # (Auto) 2.8 (1.4-5.7) K/uL Lymph # (Auto) 1.0 (0.6-2.4) K/uL Charles # (Auto) 0.5 (0.0-0.8) K/uL Eos # (Auto) 0.0 (0.0-0.7) K/uL Baso # (Auto) 0.0 (0.0-0.1) K/uL Nucleated RBC % 0.0 /100WBC Nucleated RBCs # 0 K/uL Sodium 140 (136-145) mmol/L Potassium 3.2 L (3.5-5.1) mmol/L Chloride 102 (98-107) mmol/L Carbon Dioxide 30.1 (21.0-32.0) mmol/L BUN 12 (7.0-18.0) mg/dL Creatinine 0.7 (0.6-1.0) mg/dL Est Cr Clr Drug Dosing 104.01 mL/min Estimated GFR (MDRD) > 60.0 ml/min Glucose 118 H (74-106) mg/dL Calcium 8.4 L (8.5-10.1) mg/dL Magnesium 2.2 (1.8-2.4) mg/dL Total Bilirubin 0.4 (0.2-1.0) mg/dL AST 44 H (15-37) IU/L ALT 39 (14-63) IU/L Alkaline Phosphatase 55 (46-116) U/L Troponin I < 0.050 (0.000-0.056) ng/mL Total Protein 7.8 (6.4-8.2) g/dL Albumin 3.4 (3.4-5.0) g/dL Globulin 4.4 H (2.6-4.0) g/dL Albumin/Globulin Ratio 0.8 L (0.9-1.6) Urine Color Urine Appearance Urine pH (5.0-8.0) Ur Specific [place] (1.001-1.035) Urine Protein (NEGATIVE) mg/dL Urine Glucose (UA) (NEGATIVE) mg/dL Urine Ketones (NEGATIVE) mg/dL Urine Occult Blood (NEGATIVE) Urine Nitrite (NEGATIVE) Urine Bilirubin (NEGATIVE) Urine Urobilinogen (<2.0) EU/dL Ur Leukocyte Esterase (NEGATIVE) Urine RBC (0-2/HPF) Urine WBC (0-5/HPF) Ur Epithelial Cells (NONE-FEW) Urine Bacteria (NEGATIVE) Urinalysis Comment Salicylates (0-20) mg/dL Urine Opiates Screen (NEGATIVE) Ur Oxycodone Screen (NEGATIVE) Urine Methadone Screen (NEGATIVE) Acetaminophen ug/mL Ur Barbiturates Screen (NEGATIVE) Ur Phencyclidine Scrn (NEGATIVE) Ur Amphetamine Screen (NEGATIVE) U Methamphetamines Scrn (NEGATIVE) U Benzodiazepines Scrn (NEGATIVE) U Cocaine Metab Screen (NEGATIVE) U Marijuana (THC) Screen (NEGATIVE) SARS-CoV-2 RNA (SULEMAN) (NEGATIVE) 11/06/23/21 06/23/21 Range/Units 11:11 13:10 15:10 WBC (4.0-11.0) K/uL RBC (4.30-5.90) M/uL Hgb (12.0-16.0) g/dL Hct (36.0-46.0) % MCV (80.0-98.0) fL MCH (27.0-32.0) pg MCHC (31.0-37.0) g/dL RDW Std Deviation (28.0-62.0) fl RDW Coeff of Edvin (11.0-15.0) % Plt Count (150-400) K/uL MPV (7.40-12.00) fL Neut % (Auto) (48.0-80.0) % Lymph % (Auto) (16.0-40.0) % Charles % (Auto) (0.0-15.0) % Eos % (Auto) (0.0-7.0) % Baso % (Auto) (0.0-1.5) % Neut # (Auto) (1.4-5.7) K/uL Lymph # (Auto) (0.6-2.4) K/uL Charles # (Auto) (0.0-0.8) K/uL Eos # (Auto) (0.0-0.7) K/uL Baso # (Auto) (0.0-0.1) K/uL Nucleated RBC % /100WBC Nucleated RBCs # K/uL Sodium (136-145) mmol/L Potassium (3.5-5.1) mmol/L Chloride (98-107) mmol/L Carbon Dioxide (21.0-32.0) mmol/L BUN (7.0-18.0) mg/dL Creatinine (0.6-1.0) mg/dL Est Cr Clr Drug Dosing mL/min Estimated GFR (MDRD) ml/min Glucose (74-106) mg/dL Calcium (8.5-10.1) mg/dL Magnesium (1.8-2.4) mg/dL Total Bilirubin (0.2-1.0) mg/dL AST (15-37) IU/L ALT (14-63) IU/L Alkaline Phosphatase (46-116) U/L Troponin I (0.000-0.056) ng/mL Total Protein (6.4-8.2) g/dL Albumin (3.4-5.0) g/dL Globulin (2.6-4.0) g/dL Albumin/Globulin Ratio (0.9-1.6) Urine Color DARK YELLOW Urine Appearance SLT CLOUDY Urine pH 6.5 (5.0-8.0) Ur Specific [place] 1.015 (1.001-1.035) Urine Protein 30 H (NEGATIVE) mg/dL Urine Glucose (UA) NEGATIVE (NEGATIVE) mg/dL Urine Ketones NEGATIVE (NEGATIVE) mg/dL Urine Occult Blood LARGE H (NEGATIVE) Urine Nitrite NEGATIVE (NEGATIVE) Urine Bilirubin NEGATIVE (NEGATIVE) Urine Urobilinogen 2.0 H (<2.0) EU/dL Ur Leukocyte Esterase TRACE H (NEGATIVE) Urine RBC TOO NUMEROUS TO CT H (0-2/HPF) Urine WBC 2-4 (0-5/HPF) Ur Epithelial Cells FEW (NONE-FEW) Urine Bacteria FEW (NEGATIVE) Urinalysis Comment Salicylates 1.1 (0-20) mg/dL Urine Opiates Screen (NEGATIVE) Ur Oxycodone Screen (NEGATIVE) Urine Methadone Screen (NEGATIVE) Acetaminophen <2.0 ug/mL Ur Barbiturates Screen (NEGATIVE) Ur Phencyclidine Scrn (NEGATIVE) Ur Amphetamine Screen (NEGATIVE) U Methamphetamines Scrn (NEGATIVE) U Benzodiazepines Scrn (NEGATIVE) U Cocaine Metab Screen (NEGATIVE) U Marijuana (THC) Screen (NEGATIVE) SARS-CoV-2 RNA (SULEMAN) POSITIVE H (NEGATIVE) 06/23/21 Range/Units 15:10 WBC (4.0-11.0) K/uL RBC (4.30-5.90) M/uL Hgb (12.0-16.0) g/dL Hct (36.0-46.0) % MCV (80.0-98.0) fL MCH (27.0-32.0) pg MCHC (31.0-37.0) g/dL RDW Std Deviation (28.0-62.0) fl RDW Coeff of Edvin (11.0-15.0) % Plt Count (150-400) K/uL MPV (7.40-12.00) fL Neut % (Auto) (48.0-80.0) % Lymph % (Auto) (16.0-40.0) % Charles % (Auto) (0.0-15.0) % Eos % (Auto) (0.0-7.0) % Baso % (Auto) (0.0-1.5) % Neut # (Auto) (1.4-5.7) K/uL Lymph # (Auto) (0.6-2.4) K/uL Charles # (Auto) (0.0-0.8) K/uL Eos # (Auto) (0.0-0.7) K/uL Baso # (Auto) (0.0-0.1) K/uL Nucleated RBC % /100WBC Nucleated RBCs # K/uL Sodium (136-145) mmol/L Potassium (3.5-5.1) mmol/L Chloride (98-107) mmol/L Carbon Dioxide (21.0-32.0) mmol/L BUN (7.0-18.0) mg/dL Creatinine (0.6-1.0) mg/dL Est Cr Clr Drug Dosing mL/min Estimated GFR (MDRD) ml/min Glucose (74-106) mg/dL Calcium (8.5-10.1) mg/dL Magnesium (1.8-2.4) mg/dL Total Bilirubin (0.2-1.0) mg/dL AST (15-37) IU/L ALT (14-63) IU/L Alkaline Phosphatase (46-116) U/L Troponin I (0.000-0.056) ng/mL Total Protein (6.4-8.2) g/dL Albumin (3.4-5.0) g/dL Globulin (2.6-4.0) g/dL Albumin/Globulin Ratio (0.9-1.6) Urine Color Urine Appearance Urine pH (5.0-8.0) Ur Specific [place] (1.001-1.035) Urine Protein (NEGATIVE) mg/dL Urine Glucose (UA) (NEGATIVE) mg/dL Urine Ketones (NEGATIVE) mg/dL Urine Occult Blood (NEGATIVE) Urine Nitrite (NEGATIVE) Urine Bilirubin (NEGATIVE) Urine Urobilinogen (<2.0) EU/dL Ur Leukocyte Esterase (NEGATIVE) Urine RBC (0-2/HPF) Urine WBC (0-5/HPF) Ur Epithelial Cells (NONE-FEW) Urine Bacteria (NEGATIVE) Urinalysis Comment Salicylates (0-20) mg/dL Urine Opiates Screen NEGATIVE (NEGATIVE) Ur Oxycodone Screen NEGATIVE (NEGATIVE) Urine Methadone Screen NEGATIVE (NEGATIVE) Acetaminophen ug/mL Ur Barbiturates Screen NEGATIVE (NEGATIVE) Ur Phencyclidine Scrn NEGATIVE (NEGATIVE) Ur Amphetamine Screen NEGATIVE (NEGATIVE) U Methamphetamines Scrn NEGATIVE (NEGATIVE) U Benzodiazepines Scrn NEGATIVE (NEGATIVE) U Cocaine Metab Screen NEGATIVE (NEGATIVE) U Marijuana (THC) Screen NEGATIVE (NEGATIVE) SARS-CoV-2 RNA (SULEMAN) (NEGATIVE) Result Diagrams: 06/23/21 11:11 06/23/21 11:11 Sepsis Event Note - Evaluation Sepsis Screening Result: No Definite Risk - Focused Exam Vital Signs: Vital Signs Temp Pulse Resp BP Pulse Ox 06/23/21 15:52 99.4 F 109 H 16 119/70 95 06/23/21 15:21 100.9 F H 100 16 107/65 96 06/23/21 14:01 99.9 F 101 H 17 92/68 96 06/23/21 13:04 98 F 89 14 92/61 96 06/23/21 12:09 92 18 95/65 92 L 06/23/21 10:46 96.5 F L 94 18 113/70 98 - Problem List (1) UTI (urinary tract infection) SNOMED Code(s): 74938836 ICD Code: N39.0 - URINARY TRACT INFECTION, SITE NOT SPECIFIED Status: Acute Current Visit: Yes (2) Hypokalemia SNOMED Code(s): 43953252 ICD Code: E87.6 - HYPOKALEMIA Status: Acute Current Visit: Yes (3) COVID-19 SNOMED Code(s): 857675909 ICD Code: U07.1 - COVID-19 Status: Acute Current Visit: No (4) Pneumonia SNOMED Code(s): 792710546 ICD Code: J18.9 - PNEUMONIA, UNSPECIFIED ORGANISM Status: Acute Current Visit: No Qualifiers: Pneumonia type: due to unspecified organism Laterality: left Lung location: lower lobe of lung Qualified Code(s): J18.9 - Pneumonia, unspecified organism (5) Syncope SNOMED Code(s): 997546012 ICD Code: R55 - SYNCOPE AND COLLAPSE Status: Acute Current Visit: No Qualifiers: Syncope type: unspecified Qualified Code(s): R55 - Syncope and collapse Problem List Initiated/Reviewed/Updated: Yes Orders Last 24hrs: Active Orders 24 hr Category Date Time Status Admission Status [Patient Status] [ADT] Stat ADT 06/23/21 14:18 Active Orthostatic Vital Signs [RC] ASDIRECTED Care 06/23/21 16:06 Active Telemetry Monitoring [Cardiac Monitoring] [RC] . Care 06/23/21 16:05 Active DIRECTED Soft Diet [DIET] Diet 06/23/21 Dinner Active Echo Comp wo Cont [US] Routine Exams 06/23/21 16:06 Ordered CBC WITH AUTO DIFF [HEME] AM Lab 06/24/21 05:11 Ordered CBC WITH AUTO DIFF [HEME] AM Lab 06/25/21 05:11 Ordered CBC WITH AUTO DIFF [HEME] AM Lab 06/26/21 05:11 Ordered CMP [COMPREHENSIVE METABOLIC PN,CMP] [CHEM] AM Lab 06/24/21 05:11 Ordered CMP [COMPREHENSIVE METABOLIC PN,CMP] [CHEM] AM Lab 06/25/21 05:11 Ordered CMP [COMPREHENSIVE METABOLIC PN,CMP] [CHEM] AM Lab 06/26/21 05:11 Ordered Levofloxacin/Dextrose 5%-Water [Levaquin in D5W 750 MG/ Med 06/23/21 16:15 Active 150 ML] 750 mg Premix Bag 1 bag IV Q24H Ondansetron [Zofran] Med 06/23/21 16:13 Active 4 mg IVPUSH Q6H PRN Code Status [Resuscitation Status] Routine Resus Stat 06/23/21 16:01 Ordered Medication Orders Levofloxacin/Dextrose 750 mg/ (Premix) 150 mls @ 100 mls/hr IV Q24H POOL Ondansetron HCl (Ondansetron 4 Mg/2 Ml Sdv) 4 mg IVPUSH Q6H PRN PRN Reason: Nausea/Vomiting Assessment/Plan Comment:: Admit the patient to the medical floor, vitals per unit routine, activity up ad dinora., soft diet, DVT prophylaxis with Lovenox 40 mg subcutaneously once a day, GI prophylaxis with pantoprazole 40 mg IV once a day, the patient is full code 1. Syncope -We will monitor the patient with telemetry/vehicle monitor technician -An echocardiogram has been ordered and will be reviewed once completed -Orthostatic vital signs will be assessed for potential cause of syncope -Daily CMP to assess potential electrolyte causes of syncope 2. Pneumonia/UTI -The patient has been started on Levaquin 750 mg per IV route every 24 hours -Continue to monitor patient through daily CBC to check infection status 3. Hypokalemia -Patient was given 20 mEq of potassium chloride in the ED, we have given an additional 40 mEq -Continue to monitor potassium levels and replete as needed through daily CMP
[2021-06-23] MEDS ORDERED: Enoxaparin 40 MG/0.4 ML Syringe SUBCUT SCH (17:00)
[2021-06-23] MEDS: Pantoprazole 40 MG/10 ML Syringe IVPUSH SCH (17:31)
[2021-06-24 07:41] LABS: BLOOD UREA NITROGEN,BUN 10 mg/dL (7.0-18.0); CARBON DIOXIDE,CO2 25.3 mmol/L (21.0-32.0); CHLORIDE,CL 102 mmol/L (98-107); GLUCOSE RANDOM 106 mg/dL (74-106); POTASSIUM,K 3.3 mmol/L (3.5-5.1); SODIUM,NA 137 mmol/L (136-145)
[2021-06-24] MEDS ORDERED: Potassium Chloride 20 MEQ Tab.ER PO ONE (08:11)
[2021-06-24] MEDS: Pantoprazole 40 MG/10 ML Syringe IVPUSH SCH (08:17)
[2021-06-24] MEDS ORDERED: Acetaminophen 325 MG Tab PO ONE (10:07)
[2021-06-24 12:45] VITALS: BP 113/65; PULSE 100
--- NOTE | 2021-06-24 13:37 | PCM.DCSUM1 ---
Discharge Summary - Hospital Course Free Text/Narrative:: The patient is a 36-year-old female, on day 2 of service, who has no significant past medical history, who was admitted to the medical floor due to syncope and was also found to have pneumonia, a UTI, and hypokalemia. During the hospital stay for this patient she had various treatment and monitoring modalities ordered for her syncope including telemetry, an echocardiogram, and orthostatic vital signs. Telemetry found that the patient was in sinus rhythm and had occasional sinus tachycardia with activity, more specifically a heart rate in the 130s. During inactivity the patient's heart rate would be between 90-100. In regards to her orthostatic vital signs she had similar blood pressures and heart rates both standing and sitting which were in the normal range. The patient also had pneumonia on chest x-ray and was treated with IV levofloxacin 750 mg/day. Upon discharge the patient will be supplied with the same medication but an oral formulation and the same dosage. Throughout her hospital course the patient was also suffering from hypokalemia, on multiple accounts she was treated with potassium chloride, and upon discharge has been counseled on increasing her potassium intake through foods such as bananas. Upon discharge the patient will also be prescribed a Zio patch. She has been counseled on following up with her primary care provider to discuss findings. She has been educated on taking her medication at scheduled times and being compliant. Lastly she has been advised to return to the hospital if she has any further syncopal episodes, chest pain, palpitations, slurred speech, or change in her voice or vision. The patient is now stable and can be discharged home safely. - Discharge Data Discharge Date: 06/24/21 Discharge Disposition: Home, Self-Care 01 Condition: Stable - Referral to Home Health Primary Care Physician: PCP None - Discharge Diagnosis/Problem(s) (1) UTI (urinary tract infection) SNOMED Code(s): 21868967 ICD Code: N39.0 - URINARY TRACT INFECTION, SITE NOT SPECIFIED Status: Acute (2) Hypokalemia SNOMED Code(s): 10681454 ICD Code: E87.6 - HYPOKALEMIA Status: Acute (3) COVID-19 SNOMED Code(s): 112551406 ICD Code: U07.1 - COVID-19 Status: Acute (4) Pneumonia SNOMED Code(s): 862537795 ICD Code: J18.9 - PNEUMONIA, UNSPECIFIED ORGANISM Status: Acute Qualifiers: Pneumonia type: due to unspecified organism Laterality: left Lung location: lower lobe of lung Qualified Code(s): J18.9 - Pneumonia, unspecified organism (5) Syncope SNOMED Code(s): 350800996 ICD Code: R55 - SYNCOPE AND COLLAPSE Status: Acute Qualifiers: Syncope type: unspecified Qualified Code(s): R55 - Syncope and collapse - Patient Instructions Diet: Regular Diet as Tolerated Activity: As Tolerated Showering/Bathing: May Shower Other/Special Instructions: -Return to the hospital if you have syncope, slurred speech, change in voice or vision, chest pain, palpitations. -Take your medication at scheduled times. -Follow-up with your PCP - Discharge Plan *PRESCRIPTION DRUG MONITORING PROGRAM REVIEWED*: Not Applicable *COPY OF PRESCRIPTION DRUG MONITORING REPORT IN PATIENT TATI: Not Applicable Prescriptions/Med Rec: Levofloxacin 750 mg PO DAILY 5 Days #5 tablet Home Medications: Home Meds Levofloxacin 750 mg PO DAILY 5 Days #5 tablet 06/24/21 [Rx] Patient Handouts: COVID-19 Frequently Asked Questions, COVID-19 Vaccine Information, Hypokalemia, How to Protect Yourself and Others - CDC (03/07/2021), Urinary Tract Infection, Adult, [id number], Near-Syncope, [id number], Levofloxacin tablets, Community-Acquired Pneumonia, Adult, [id number] Referrals: Radha Torre PA [Physician Senior Director [employer] Services] - 07/07/21 1:30 pm - Discharge Summary/Plan Comment DC Time >30 min.: Yes Total # of Minutes for Discharge Time: 35 minutes - Review of Systems General: Denies: Fever, Weakness, Fatigue HEENT: Denies: Headaches, Sore Throat Pulmonary: Denies: Shortness of Breath, Cough Cardiovascular: Denies: Chest Pain, Palpitations Gastrointestinal: Denies: Abdominal Pain Neurological: Denies: Confusion, Dizziness, Numbness, Trouble Speaking, Difficulty Walking - Patient Data Vitals - Most Recent: Last Vital Signs Temp 97.0 F 06/24/21 12:25 Pulse 100 06/24/21 12:25 Resp 18 06/24/21 12:25 BP 113/65 06/24/21 12:25 Pulse Ox 94 L 06/24/21 12:25 Orthostatic Blood Pressure [ 107/67 Supine] Orthostatic Blood Pressure [ 120/72 Standing] Orthostatic Blood Pressure [ 115/73 Sitting] Weight - Most Recent: 188 lb 4.8 oz I&O - Last 24 hours: Intake & Output 06/23/21 06/24/21 06/24/21 22:59 06:59 14:59 Intake Total 500 Balance 500 Lab Results - Last 24 hrs: Laboratory Results - last 24 hr 06/23/21 06/23/21 06/23/21 Range/Units 11:11 13:10 15:10 WBC (4.0-11.0) K/uL RBC (4.30-5.90) M/uL Hgb (12.0-16.0) g/dL Hct (36.0-46.0) % MCV (80.0-98.0) fL MCH (27.0-32.0) pg MCHC (31.0-37.0) g/dL RDW Std Deviation (28.0-62.0) fl RDW Coeff of Edvin (11.0-15.0) % Plt Count (150-400) K/uL MPV (7.40-12.00) fL Neut % (Auto) (48.0-80.0) % Lymph % (Auto) (16.0-40.0) % [place] % (Auto) (0.0-15.0) % Eos % (Auto) (0.0-7.0) % Baso % (Auto) (0.0-1.5) % Neut # (Auto) (1.4-5.7) K/uL Lymph # (Auto) (0.6-2.4) K/uL [place] # (Auto) (0.0-0.8) K/uL Eos # (Auto) (0.0-0.7) K/uL Baso # (Auto) (0.0-0.1) K/uL Nucleated RBC % /100WBC Nucleated RBCs # K/uL Sodium (136-145) mmol/L Potassium (3.5-5.1) mmol/L Chloride (98-107) mmol/L Carbon Dioxide (21.0-32.0) mmol/L BUN (7.0-18.0) mg/dL Creatinine (0.6-1.0) mg/dL Est Cr Clr Drug Dosing mL/min Estimated GFR (MDRD) ml/min Glucose (74-106) mg/dL Calcium (8.5-10.1) mg/dL Total Bilirubin (0.2-1.0) mg/dL AST (15-37) IU/L ALT (14-63) IU/L Alkaline Phosphatase (46-116) U/L Total Protein (6.4-8.2) g/dL Albumin (3.4-5.0) g/dL Globulin (2.6-4.0) g/dL Albumin/Globulin Ratio (0.9-1.6) Urine Color DARK YELLOW Urine Appearance SLT CLOUDY Urine pH 6.5 (5.0-8.0) Ur Specific [place] 1.015 (1.001-1.035) Urine Protein 30 H (NEGATIVE) mg/dL Urine Glucose (UA) NEGATIVE (NEGATIVE) mg/dL Urine Ketones NEGATIVE (NEGATIVE) mg/dL Urine Occult Blood LARGE H (NEGATIVE) Urine Nitrite NEGATIVE (NEGATIVE) Urine Bilirubin NEGATIVE (NEGATIVE) Urine Urobilinogen 2.0 H (<2.0) EU/dL Ur Leukocyte Esterase TRACE H (NEGATIVE) Urine RBC TOO NUMEROUS TO CT H (0-2/HPF) Urine WBC 2-4 (0-5/HPF) Ur Epithelial Cells FEW (NONE-FEW) Urine Bacteria FEW (NEGATIVE) Urinalysis Comment Salicylates 1.1 (0-20) mg/dL Urine Opiates Screen (NEGATIVE) Ur Oxycodone Screen (NEGATIVE) Urine Methadone Screen (NEGATIVE) Acetaminophen <2.0 ug/mL Ur Barbiturates Screen (NEGATIVE) Ur Phencyclidine Scrn (NEGATIVE) Ur Amphetamine Screen (NEGATIVE) U Methamphetamines Scrn (NEGATIVE) U Benzodiazepines Scrn (NEGATIVE) U Cocaine Metab Screen (NEGATIVE) U Marijuana (THC) Screen (NEGATIVE) SARS-CoV-2 RNA (SULEMAN) POSITIVE H (NEGATIVE) 06/23/21 06/24/21 06/24/21 Range/Units 15:10 05:56 05:56 WBC 3.87 L (4.0-11.0) K/uL RBC 4.43 (4.30-5.90) M/uL Hgb 13.8 (12.0-16.0) g/dL Hct 40.9 (36.0-46.0) % MCV 92.3 (80.0-98.0) fL MCH 31.2 (27.0-32.0) pg MCHC 33.7 (31.0-37.0) g/dL RDW Std Deviation 42.3 (28.0-62.0) fl RDW Coeff of Edvin 13 (11.0-15.0) % Plt Count 123 L (150-400) K/uL MPV 11.00 (7.40-12.00) fL Neut % (Auto) 43.6 L (48.0-80.0) % Lymph % (Auto) 41.9 H (16.0-40.0) % [place] % (Auto) 14.2 (0.0-15.0) % Eos % (Auto) 0.0 (0.0-7.0) % Baso % (Auto) 0.3 (0.0-1.5) % Neut # (Auto) 1.7 (1.4-5.7) K/uL Lymph # (Auto) 1.6 (0.6-2.4) K/uL [place] # (Auto) 0.6 (0.0-0.8) K/uL Eos # (Auto) 0.0 (0.0-0.7) K/uL Baso # (Auto) 0.0 (0.0-0.1) K/uL Nucleated RBC % 0.0 /100WBC Nucleated RBCs # 0 K/uL Sodium 137 (136-145) mmol/L Potassium 3.3 L (3.5-5.1) mmol/L Chloride 102 (98-107) mmol/L Carbon Dioxide 25.3 (21.0-32.0) mmol/L BUN 10 (7.0-18.0) mg/dL Creatinine 0.8 (0.6-1.0) mg/dL Est Cr Clr Drug Dosing 91.01 mL/min Estimated GFR (MDRD) > 60.0 ml/min Glucose 106 (74-106) mg/dL Calcium 8.2 L (8.5-10.1) mg/dL Total Bilirubin 0.4 (0.2-1.0) mg/dL AST 46 H (15-37) IU/L ALT 35 (14-63) IU/L Alkaline Phosphatase 45 L (46-116) U/L Total Protein 6.9 (6.4-8.2) g/dL Albumin 2.9 L (3.4-5.0) g/dL Globulin 4.0 (2.6-4.0) g/dL Albumin/Globulin Ratio 0.7 L (0.9-1.6) Urine Color Urine Appearance Urine pH (5.0-8.0) Ur Specific [place] (1.001-1.035) Urine Protein (NEGATIVE) mg/dL Urine Glucose (UA) (NEGATIVE) mg/dL Urine Ketones (NEGATIVE) mg/dL Urine Occult Blood (NEGATIVE) Urine Nitrite (NEGATIVE) Urine Bilirubin (NEGATIVE) Urine Urobilinogen (<2.0) EU/dL Ur Leukocyte Esterase (NEGATIVE) Urine RBC (0-2/HPF) Urine WBC (0-5/HPF) Ur Epithelial Cells (NONE-FEW) Urine Bacteria (NEGATIVE) Urinalysis Comment Salicylates (0-20) mg/dL Urine Opiates Screen NEGATIVE (NEGATIVE) Ur Oxycodone Screen NEGATIVE (NEGATIVE) Urine Methadone Screen NEGATIVE (NEGATIVE) Acetaminophen ug/mL Ur Barbiturates Screen NEGATIVE (NEGATIVE) Ur Phencyclidine Scrn NEGATIVE (NEGATIVE) Ur Amphetamine Screen NEGATIVE (NEGATIVE) U Methamphetamines Scrn NEGATIVE (NEGATIVE) U Benzodiazepines Scrn NEGATIVE (NEGATIVE) U Cocaine Metab Screen NEGATIVE (NEGATIVE) U Marijuana (THC) Screen NEGATIVE (NEGATIVE) SARS-CoV-2 RNA (SULEMAN) (NEGATIVE) Med Orders - Current: Current Medications Discontinued Medications Acetaminophen (Acetaminophen 325 Mg Tab) 650 mg PO NOW ONE Stop: 06/24/21 10:08 Last Admin: 06/24/21 10:44 Dose: 650 mg Documented by: Enoxaparin Sodium (Enoxaparin 40 Mg/0.4 Ml Syringe) 40 mg SUBCUT Q24H POOL Last Admin: 06/23/21 17:31 Dose: 40 mg Documented by: Sodium Chloride (Normal Saline) 1,000 mls @ 999 mls/hr IV .BOLUS ONE Stop: 06/23/21 12:09 Last Admin: 06/23/21 12:05 Dose: 999 mls/hr Documented by: Potassium Chloride 20 meq/ (Premix) 50 mls @ 25 mls/hr IV ONETIME ONE Stop: 06/23/21 13:22 Last Admin: 06/23/21 12:14 Dose: 25 mls/hr Documented by: Levofloxacin/Dextrose 750 mg/ (Premix) 150 mls @ 100 mls/hr IV Q24H [facility] Last Admin: 06/23/21 16:39 Dose: 100 mls/hr Documented by: Ondansetron HCl (Ondansetron 4 Mg/2 Ml Sdv) 4 mg IVPUSH ONETIME ONE Stop: 06/23/21 11:10 Last Admin: 06/23/21 12:06 Dose: 4 mg Documented by: Ondansetron HCl (Ondansetron 4 Mg/2 Ml Sdv) 4 mg IVPUSH Q6H PRN PRN Reason: Nausea/Vomiting Pantoprazole Sodium (Pantoprazole 40 Mg/10 Ml Syringe) 40 mg IVPUSH DAILY [facility] Last Admin: 06/24/21 08:17 Dose: 40 mg Documented by: Potassium Chloride (Potassium Chloride 20 Meq Tab.Er) 40 meq PO ONETIME ONE Stop: 06/23/21 16:12 Last Admin: 06/23/21 16:38 Dose: 40 meq Documented by: Potassium Chloride (Potassium Chloride 20 Meq Tab.Er) 40 meq PO ONETIME ONE Stop: 06/24/21 08:12 Last Admin: 06/24/21 08:24 Dose: 40 meq Documented by: - Exam General: Reports: Alert, Oriented, Cooperative HEENT: Reports: Mucous Membr. Moist/[place] Lungs: Reports: Clear to Auscultation, Normal Respiratory Effort Cardiovascular: Reports: Regular Rate, Regular Rhythm GI/Abdominal Exam: Normal Bowel Sounds, Non-Tender Neurological: Reports: No New Focal Deficit, Normal Gait, Normal Speech, Sensation Intact
== END 2021-06-24 13:20 | disposition home or self-care (01) ==
LOC: MW.ED 10:30 → MW.MS 14:18
PROVIDERS: ADMIT Internal Medicine; ATTEND Internal Medicine
DX: R55 Syncope and collapse (principal); U07.1 COVID-19; J12.82 Pneumonia due to coronavirus disease 2019; N39.0 Urinary tract infection, site not specified; E87.6 Hypokalemia; Z88.8 Allergy status to other drugs, medicaments and biological substances; Z91.040 Latex allergy status; Z88.2 Allergy status to sulfonamides; Z98.890 Other specified postprocedural states
CPT/HCPCS: 36415; 70450; 71045; 80053; 80143; 80179; 80305; 81001; 83735; 84484; 85025; 87635; 93005; 93306; 96365; 96366; 96367; 96375; 99285; A9270; C9113; J1650; J1956; J2405; J3480; J7030; U0002